=== PATIENT | male | born 1955 | race Caucasian/White ===

== ENCOUNTER 2024-08-17 07:31 | Day surgery (SDC) | payer MEDICARE, OTHER ==
[~2024-08-17 07:31] MED LIST: Propofol 200 MG/20 ML SDV ONE; fentaNYL 100 MCG/2 ML SDV ONE
[2024-08-17] MEDS: Lactated Ringers 1,000 ML IV SCH (08:31)
[2024-08-17 10:40] VITALS: BP 128/80; PULSE 64
== END 2024-08-17 10:43 | disposition home or self-care (01) ==
LOC: JP.SDS 07:31
PROVIDERS: ATTEND Surgery
DX: Z12.11 Encounter for screening for malignant neoplasm of colon (principal); D12.2 Benign neoplasm of ascending colon; K57.30 Diverticulosis of large intestine without perforation or abscess without bleeding
CPT/HCPCS: 00811-QZ; 88305; J2704; J3010; J7120